=== PATIENT | male | born 1980 | race Caucasian/White ===

== ENCOUNTER 2016-11-27 10:10 | Inpatient (IN) | payer OTHER, BC ==
[2016-11-27] MEDS ORDERED: TDAP ADULT 0.5 ML INJ (BOOSTRIX) IM ONE (10:21)
[2016-11-27] MEDS ORDERED: ceFAZolin 2 GM/DEXTROSE 100 ML IV ONE (10:27)
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
[2016-11-27 10:30] LABS: % IMMATURE GRANULYOCYTES 1.3 % (0.0-1.1); ABSOLUTE IMMATURE GRANULOCYTES 0.11 10^3/uL (0.00-0.10); ADD DIFF? NO; ADD MORPH? NO; ADD SCAN? NO; ATYPICAL LYMPHOCYTE FLAG 10 (0-99); FRAGMENT RBC FLAG 0 (0-99); HEMATOCRIT 46.8 % (40.0-51.0); HEMOGLOBIN 15.3 g/dL (13.7-17.5); LEFT SHIFT FLG 0 (0-99); LIPEMIA HEMOLYSIS FLAG 80 (0-99); MEAN CELL HEMOGLOBIN 31.2 pg (27.9-34.1); MEAN CELL HEMOGLOBIN CONCENTR. 32.7 g/dL (32.4-36.7); MEAN CELL VOLUME 95.5 fL (81.5-99.8); PLATELET CLUMPS FLAG 0 (0-99); PLATELET COUNT 300 10^3/uL (150-400); RED CELL DISTRIBUTION WIDTH 12.8 % (11.5-15.2)
[2016-11-27 10:55] LABS: ANION GAP 13 mEq/L (8-16); CALCIUM 9.5 mg/dL (8.5-10.4); CARBON DIOXIDE 24 mEq/l (22-31); CHLORIDE 102 mEq/L (97-110); CREATININE 1.1 mg/dL (0.7-1.3); GLOMERULAR FILTRATION RATE > 60; GLUCOSE 120 mg/dL (70-100); SODIUM 139 mEq/L (134-144)
[2016-11-27] MEDS ORDERED: ONDANSETRON 4 MG/2 ML VIAL ONE (11:00)
[2016-11-27] MEDS ORDERED: HYDROmorphONE/DILAUDID 1 MG/ML SYR ONE (11:00)
[2016-11-27] MEDS ORDERED: ONDANSETRON 4 MG/2 ML VIAL IVP ONE (11:01)
[2016-11-27] MEDS ORDERED: HYDROmorphONE/DILAUDID 1 MG/ML SYR IVP ONE (11:01)
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
[2016-11-27] MEDS ORDERED: LR 1,000 ML IV ONE (12:40)
[2016-11-27] MEDS ORDERED: MIDAZOLAM 2 MG/2 ML VIAL IVP ONE (13:00)
[2016-11-27] MEDS ORDERED: BUPIVACAINE/EPI 0.5% 30 ML SDV ONE (13:01)
--- NOTE | 2016-11-27 13:01 | PDANEPAE ---
BRENT History of Present Illness r tibial fracture ANE Past Medical History Past Medical History: asthma - Pulmonary History Hx Asthma/Reactive Airway Disease: Yes Hx Oxygen in Use at Home: No Hx Sleep Apnea: No - Endocrine History Hx Diabetes: No ANE Patient History - Allergies Allergies/Adverse Reactions: cat dander Allergy (Verified 11/27/16 10:23) - Home Medications Home Medications: Acetaminophen [Tylenol 325mg (*)] 325 mg PO DAILY PRN 11/27/16 [Last Taken Unknown] Albuterol [Proventil Inhaler HFA (*)] 1 - 2 puffs IH DAILY PRN 11/27/16 [Last Taken Unknown] - NPO status NPO Since - Liquids (Date): 11/27/16 NPO Since - Liquids (Time): 09:30 NPO Since - Solids (Date): 11/26/16 - Smoking Hx Smoking Status: Never smoked BRENT Labs/Vital Signs - Labs Result Diagrams: 11/27/16 10:14 11/27/16 10:14 - Vital Signs Blood Pressure: 121/75 Heart Rate: 68 Respiratory Rate: 18 O2 Sat (%): 95 Height: 177.8 cm Weight: 99.79 kg BRENT Physical Exam - Airway Neck exam: FROM Mallampati Score: Class 3 Mouth exam: normal dental/mouth exam - Pulmonary Pulmonary: no respiratory distress - Cardiovascular Cardiovascular: regular rate and rhythym - ASA Status ASA Status: II, E ANE Anesthesia Plan Anesthesia Plan: general endotracheal anesthesia
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
[2016-11-27] MEDS ORDERED: SUCCINYLCHOLINE CHLORIDE*ANESTHESIA ONLY*200 MG/10 ML SYR IVP ONE (13:11)
[2016-11-27] MEDS ORDERED: fentaNYL 100 MCG/2 ML INJ ONE ×3 (13:11→18:17)
[2016-11-27] MEDS ORDERED: ROCURONIUM 50 MG/5 ML VIAL ONE (13:11)
[2016-11-27] MEDS ORDERED: HYDROmorphONE/DILAUDID 2 MG/ML INJ ONE (13:11)
[2016-11-27] MEDS ORDERED: PROPOFOL 200 MG/20 ML VIAL ONE (13:12)
[2016-11-27] MEDS ORDERED: NALOXONE HCL 0.4 MG/ML INJ IVP PRN ×2 (13:15→15:16)
[2016-11-27] MEDS ORDERED: ONDANSETRON 4 MG/2 ML VIAL IVP PRN ×2 (13:15→15:16)
[2016-11-27] MEDS ORDERED: PROMETHAZINE HCL 25 MG/ML INJ IVP PRN (15:16)
[2016-11-27] MEDS ORDERED: ALBUTEROL 3 ML DEYVIAL IH PRN (15:16)
[2016-11-27] MEDS ORDERED: HYDROmorphONE/DILAUDID 1 MG/ML SYR IVP PRN (15:16)
[2016-11-27] MEDS ORDERED: IOPAMIDOL (ISOVUE-M 200) 20 ML VIAL ONE (16:13)
--- NOTE | 2016-11-27 16:19 | POSTOPPROG ---
Post Op Note Date of Operation: 11/27/16 Surgeon: Rick Barrett Data Entry Clerk: Dalia Sandoval PA-C Anesthesia: GET(General Endotracheal) Pre-op Diagnosis: GradeIIIB Right Open distal tibia/intraarticular & proximal fibula fracture Post-op Diagnosis: GradeIIIB Right Open distal tibia/intraarticular & proximal fibula fracture Indication: Open tibia/fibula fracture Procedure: I&D Right open wound and ex-fix placement for tibia/fibula fractures Findings: Open tibia fracture with arterial bleeding and nerve injury Inf/Abcess present in the surg proc area at time of surgery?: No EBL: 50-100 Complications: Upon immediate inspection of the right open tibia fracture site there was bright red blood flow and a lacerated arterial vessel and nerve were noted. The artery was tied off to stop the bleeding. An intra-op neurosurgeon and vascular surgeon were paged into the room for further evaluation and treatment. Patient was stable throughout the procedure.
[2016-11-27] MEDS ORDERED: IOPAMIDOL (ISOVUE-M 300) 15 ML VIAL ONE (16:35)
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
--- NOTE | 2016-11-27 18:08 | POSTANESTH ---
Post Anesthetic Evaluation Cardiovascular Status: Normal, Stable Respiratory Status: Normal, Stable Level of Consciousness/Mental Status: Can Participate in Eval Pain Control: Adequate, Prn Tx Ordered Nausea/Vomiting Control: Adequate, Prn Tx Ordered Complications Possibly Related to Anesthesia: None Noted
[2016-11-27] MEDS: fentaNYL 100 MCG/2 ML INJ IVP PRN ×2 (18:20→18:47)
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
[2016-11-27] MEDS: oxyCODONE IR 5 MG TAB PO PRN (19:58)
[2016-11-27] MEDS: ceFAZolin 2 GM/DEXTROSE 100 ML IV SCH (20:40)
[2016-11-27] MEDS: LR 1,000 ML IV SCH (20:41)
[2016-11-27] MEDS: FAMOTIDINE 20 MG/NACL 50 ML IV SCH (23:48)
[2016-11-28] MEDS: oxyCODONE IR 5 MG TAB PO PRN ×5 (02:19→19:56)
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
[2016-11-28] MEDS: ceFAZolin 2 GM/DEXTROSE 100 ML IV SCH ×3 (06:52→23:25)
--- NOTE | 2016-11-28 07:30 | SOAPPROG ---
<Alice Fernandezher - Last Filed: 11/28/16 07:26> SOAP Progress Note Assessment/Plan: Assessment/Plan: Right distal tibia fracture open and proximal fibula fracture s /p application of external fixation, lateral compartment fasciotomy POD#1. Also , repair of the anterior tibial artery and peroneal nerve. - Continue pain management - NWB RLE - Elevate the RLE for comfort and ice - Will need delayed closure of the lateral fasciotomy site 11/28/16 07:26 11/28/16 07:35 Subjective: Pt states he is having trouble getting comfortable, but the pain is mostly being managed well. Pt denies any fever, chills, chest pain, SOB, abdominal pain, N/V/D, and calf pain. Objective: Vital Signs Temp Pulse Resp BP Pulse Ox 37.0 C 69 16 104/66 99 11/28/16 07:23 11/28/16 07:23 11/28/16 07:23 11/28/16 07:23 11/28/16 07:23 11/27/16 11/28/16 11/29/16 05:59 05:59 05:59 Intake Total 2390 Output Total 1000 Balance 1390 Physical Exam - Physical Exam General Appearance: alert, no apparent distress Peripheral Pulses: 2+: dorsalis-pedis (R), dorsalis-pedis (L) Skin: normal color, warm/dry, other (clear, bloody drainage from the lateral fasciotomy site.) Extremities: normal capillary refill, pedal edema, swelling, other (External fixation device in place. Compartments are soft ), No calf tenderness, No Flash 's sign Neuro/Psych: alert, normal mood/affect, oriented x 3 ICD10 Worksheet Patient Problems: Problems Problem Status Onset Facial laceration Acute Nasal bone fracture Acute Open fracture of right tibia and fibula Acute <Rick Barrett - Last Filed: 11/28/16 14:06> SOAP Progress Note Assessment/Plan: Assessment: Plan: 11/28/16 14:02 Strict elevation above heart, NWB RLE, pin site care with 1/2 strength H202 starting tomorrow with dsg change. No NSAIDs. CT RLE with sag/cor/3D recons today. Appears he will be appropriate for DPC of lat fasciotomy site on Kurtis. Cont IV abx while fasciotoy site is open. Appreciate GSURG and NSURG multi-disciplinary approach to this complex patient and injury - neuro/vasc care per these MDs. Dr Aguilar would like to proceed with angiogram at some point today. Please call with any questions - my partner is soup person this weekend, Dr Kenji Hawthorne. Objective: Vital Signs Temp Pulse Resp BP Pulse Ox 36.9 C 75 16 110/68 100 11/28/16 11:48 11/28/16 11:48 11/28/16 11:48 11/28/16 11:48 11/28/16 11:48 11/27/16 11/28/16 11/29/16 05:59 05:59 05:59 Intake Total 2390 Output Total 1000 Balance 1390 Focused secondary exam of RLE by me is notable for intact LT sens over DP, SP and T nerve distributions distally. He is able to wiggle all toes. No pain with passive stretch and comp's soft throughout. WWP with brisk CR, 1+ DP and 2 + PT pulses.
[2016-11-28] MEDS: ENOXAPARIN 40 MG/0.4 ML SYR SC SCH (08:04)
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
[2016-11-28] MEDS: FAMOTIDINE 20 MG/NACL 50 ML IV SCH ×2 (08:06→22:59)
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
[2016-11-28] MEDS: LR 1,000 ML IV SCH (15:17)
[2016-11-29] MEDS: oxyCODONE IR 5 MG TAB PO PRN ×6 (00:09→22:12)
[2016-11-29] MEDS: LR 1,000 ML IV SCH (03:38)
[2016-11-29] MEDS: ceFAZolin 2 GM/DEXTROSE 100 ML IV SCH ×3 (05:57→22:13)
[2016-11-29] MEDS ORDERED: METOCLOPRAMIDE 10 MG TAB PO PRN (08:40)
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
[2016-11-29] MEDS: DOCUSATE SODIUM 100 MG CAP PO SCH ×2 (09:58→20:31)
[2016-11-29] MEDS: ENOXAPARIN 40 MG/0.4 ML SYR SC SCH (09:59)
[2016-11-29] MEDS: FAMOTIDINE 20 MG TAB PO SCH ×2 (09:59→20:30)
--- NOTE | 2016-11-29 15:15 | SOAPPROG ---
SOAP Progress Note Assessment/Plan: Assessment/Plan: Right distal tibia fracture open and proximal fibula fracture s /p application of external fixation, lateral compartment fasciotomy POD#2. Also , repair of the anterior tibial artery and peroneal nerve. - Continue pain management - NWB RLE - Elevate the RLE for comfort and ice - Pin site care done today - Keep NPO after midnight for potential closing of fasciotomy site, will evaluate in the morning for definitive plan - VTE prophylaxis per trauma team 11/28/16 07:26 11/28/16 07:35 11/29/16 15:11 Subjective: Pt states he is doing okay. He has trouble getting comfortable. Pt thinks he has more swelling in the RLE extremity today, especially his foot. Reports decreased sensation in the lateral foot. Objective: Vital Signs Temp Pulse Resp BP Pulse Ox 36.8 C 83 16 113/62 95 11/29/16 11:01 11/29/16 11:01 11/29/16 11:01 11/29/16 11:01 11/29/16 11:01 11/28/16 11/29/16 11/30/16 05:59 05:59 05:59 Intake Total 2390 Output Total 1000 475 Balance 1390 -475 Physical Exam - Physical Exam General Appearance: alert, mild distress Cardiac/Chest: normal peripheral pulses Skin: normal color, warm/dry, other (fasciotomy site with serosanguinous drainage, pin sites without any erythema or calor. ) Extremities: normal inspection, normal capillary refill, pedal edema, swelling ( RLE. ), No calf tenderness, No Flash's sign Neuro/Psych: alert, normal mood/affect, oriented x 3, sensory deficit (light touch intact to the dorsal aspect of the lateral foot, but pt reports it is decreased) ICD10 Worksheet Patient Problems: Problems Problem Status Onset Facial laceration Acute Nasal bone fracture Acute Open fracture of right tibia and fibula Acute
[2016-11-30] MEDS: oxyCODONE IR 5 MG TAB PO PRN ×6 (02:45→23:09)
[2016-11-30] MEDS: ceFAZolin 2 GM/DEXTROSE 100 ML IV SCH ×3 (05:59→21:53)
[2016-11-30] MEDS: ENOXAPARIN 40 MG/0.4 ML SYR SC SCH (08:22)
[2016-11-30] MEDS: FAMOTIDINE 20 MG TAB PO SCH ×2 (08:22→20:54)
[2016-11-30] MEDS: DOCUSATE SODIUM 100 MG CAP PO SCH (08:22)
--- NOTE | 2016-11-30 08:56 | SOAPPROG ---
SOAP Progress Note Assessment/Plan: Assessment: Stable. No evidence of compartment syndrome/ infection. Still to swollen for delayed primary wound closure today. Plan: Continue elevation, observation, PT. Delayed primary wound closure this week if swelling decreases, otherwise STSG. Consider wound vac to decrease swelling. 11/30/16 08:52 11/30/16 09:06 Subjective: Pain well controlled : 07/14 this am. Feels swelling is about the same. Objective: Vital Signs Temp Pulse Resp BP Pulse Ox 36.9 C 85 18 127/83 H 96 11/30/16 02:49 11/30/16 02:49 11/30/16 02:49 11/30/16 02:49 11/30/16 02:49 11/29/16 11/30/16 12/01/16 05:59 05:59 05:59 Output Total 475 Balance -475 Still with significant swelling lower leg, but compartments are soft. Dressings changed. Incision and fasciotomy site clean without signs of infection. Pulses: DP and PT 2+. Cap refill normal. Able to dorsiflex and plantarflex his toes. Absent sensation in 1st dorsal web space. Decreased but intact sensation dorsum of foot. Normal sensation plantar foot. ICD10 Worksheet Patient Problems: Problems Problem Status Onset Facial laceration Acute Nasal bone fracture Acute Open fracture of right tibia and fibula Acute
--- NOTE | 2016-11-30 09:20 | TRAUMAPN ---
Assessment/Plan: wound inspected at bedside and I agree with Dr. Hawthorne, there is too much swelling for fasciotomy closure today. I would apply a wound vac and re-assess in 1-2 days. discussed with patient/supplies ordered. Subjective: awake and alert/post injury day #3 s/p RLE ex-fix for distal tib fib fx./fasciotomy Objective: Vital Signs Temp Pulse Resp BP Pulse Ox 36.9 C 85 18 127/83 H 96 11/30/16 02:49 11/30/16 02:49 11/30/16 02:49 11/30/16 02:49 11/30/16 02:49 11/29/16 11/30/16 12/01/16 05:59 05:59 05:59 Output Total 475 Balance -475 - C-Spine Clearance Cervical Spine Cleared: Yes Provider who Cleared Cervical Spine: Lauren Physical Exam - Physical Exam General Appearance: alert, mild distress Neck: non-tender Respiratory: chest non-tender, lungs clear Cardiac/Chest: regular rate, rhythm Abdomen: non-tender, soft Skin: normal color, other (RLE swelling/edema from the knee distal) Extremities: other (LLE DP +2 PT +2/loss of sensation dorsum of foot) Neuro/Psych: alert, normal mood/affect, oriented x 3
[2016-11-30] MEDS ORDERED: MAGNESIUM HYDROXIDE 30 ML UDCUP PO PRN (11:05)
[2016-11-30] MEDS ORDERED: BISACODYL 10 MG SUPP PR PRN (11:05)
[2016-11-30] MEDS ORDERED: HYDROGEN PEROXIDE 236 ML BOTTLE TP ONE (11:32)
[2016-11-30] MEDS: POLYETHYLENE GLYCOL 3350 17 GM PKT PO PRN (11:32)
[2016-11-30] MEDS: SENNOSIDES/DOCUSATE SODIUM TAB PO SCH (20:54)
[2016-12-01] MEDS: oxyCODONE IR 5 MG TAB PO PRN ×4 (05:17→21:14)
[2016-12-01] MEDS: ceFAZolin 2 GM/DEXTROSE 100 ML IV SCH ×2 (05:19→14:40)
--- NOTE | 2016-12-01 07:17 | SOAPPROG ---
SOAP Progress Note Assessment/Plan: Assessment/Plan: Right distal tibia fracture open and proximal fibula fracture s /p application of external fixation, lateral compartment fasciotomy POD#4. Also , repair of the anterior tibial artery and peroneal nerve. - Continue pain management - NWB RLE - Elevate the RLE for comfort and ice - Will need daily pin care - VTE prophylaxis per trauma team - Will need delayed closure of fasciotomy site 11/28/16 07:26 11/28/16 07:35 11/29/16 15:11 12/01/16 07:14 Subjective: Pt states his pain has been more manageable 07/14. Still reports numbness on the dorsal aspect of the R foot. Pt denies fever, chills, chest pain, SOB, abdominal pain, N/V/D, and calf pain. Objective: Vital Signs Temp Pulse Resp BP Pulse Ox 36.9 C 95 18 115/83 H 97 12/01/16 04:00 12/01/16 04:00 12/01/16 04:00 12/01/16 04:00 12/01/16 04:00 11/30/16 12/01/16 12/02/16 05:59 05:59 05:59 Intake Total 2000 Output Total 1625 Balance 375 Physical Exam - Physical Exam General Appearance: alert, no apparent distress Peripheral Pulses: 1+: dorsalis-pedis (R) (more faint today) Skin: normal color, warm/dry, other (wound vac in place lateral compartment) Extremities: normal inspection, normal capillary refill, pedal edema, swelling ( RLE ), No calf tenderness, No Flash's sign Neuro/Psych: alert, normal mood/affect, oriented x 3, sensory deficit ( subjective decreased sensation to light touch on the dorsal aspect R foot) ICD10 Worksheet Patient Problems: Problems Problem Status Onset Facial laceration Acute Nasal bone fracture Acute Open fracture of right tibia and fibula Acute
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
[2016-12-01] MEDS: ENOXAPARIN 40 MG/0.4 ML SYR SC SCH (08:16)
[2016-12-01] MEDS: SENNOSIDES/DOCUSATE SODIUM TAB PO SCH ×2 (08:17→20:56)
[2016-12-01] MEDS: FAMOTIDINE 20 MG TAB PO SCH ×2 (08:17→20:57)
[2016-12-01] MEDS: BACITRACIN OINTMENT 1 PACKET TP SCH ×2 (08:17→20:57)
[2016-12-01] MEDS: LACTULOSE 20 GM/30 ML UDCUP PO PRN ×2 (08:17→18:14)
--- NOTE | 2016-12-01 10:40 | TRAUMAPN ---
Assessment/Plan: POD#4 s/p I&D Right open wound and ex-fix placement for tibia/fibula fractures complicated by an arterial bleed which was resolved in the operating room. Wound vac placed yesterday, amount of swelling present was not amenable to fasciotomy closure. Continue wound vac today NPO after midnight for possible wound closure tomorrow Elevate leg for comfort Continue pain control S: Patient reports pain well controlled with Oxycodone. No bowel movement yet. Denies SOB, dyspnea, N/V. O: Sitting up in bed with leg elevated Left orbital ecchymosis, vision grossly intact Wound vac draining serosang Moderate RLE edema present RLE DP and PT pulses present Minor movement of right toes Lungs CTAB Abdomen soft, nontender, nondistended Objective: Vital Signs Temp Pulse Resp BP Pulse Ox 36.8 C 80 18 126/71 H 98 12/01/16 08:00 12/01/16 08:00 12/01/16 08:00 12/01/16 08:00 12/01/16 08:00 11/30/16 12/01/16 12/02/16 05:59 05:59 05:59 Intake Total 1999 Output Total 1625 Balance 375 - C-Spine Clearance Cervical Spine Cleared: Yes Provider who Cleared Cervical Spine: Lauren
[2016-12-01] MEDS ORDERED: IOPAMIDOL (ISOVUE 370) 100 ML BTL IV ONE (14:41)
--- NOTE | 2016-12-01 19:58 | SOAPPROG ---
GIN Progress Note Assessment/Plan: Assessment: PATIENT DOING REASONABLY WELL WITH RIGHT OPEN TIB-FIB FRACTURE CTA SUGGESTED POSSIBLE TIBIOPERONEAL TRUNK AV FISTULA WITH OCCLUDED ANTERIOR TIBIAL DISTALLY Plan: WE WILL FOLLOW 12/01/16 19:57 Objective: Vital Signs Temp Pulse Resp BP Pulse Ox 36.8 C 88 16 114/68 96 12/01/16 16:00 12/01/16 16:00 12/01/16 16:00 12/01/16 16:00 12/01/16 16:00 11/30/16 12/01/16 12/02/16 05:59 05:59 05:59 Intake Total 1999 Output Total 1625 50 Balance 375 750 ICD10 Worksheet Patient Problems: Problems Problem Status Onset Facial laceration Acute Nasal bone fracture Acute Open fracture of right tibia and fibula Acute
[2016-12-02] MEDS: oxyCODONE IR 5 MG TAB PO PRN ×4 (03:03→20:51)
[2016-12-02] MEDS: SENNOSIDES/DOCUSATE SODIUM TAB PO SCH ×2 (08:04→20:52)
[2016-12-02] MEDS: FAMOTIDINE 20 MG TAB PO SCH ×2 (08:04→20:52)
[2016-12-02] MEDS: ENOXAPARIN 40 MG/0.4 ML SYR SC SCH (08:05)
[2016-12-02] MEDS: POLYETHYLENE GLYCOL 3350 17 GM PKT PO PRN (08:05)
[2016-12-02] MEDS: BACITRACIN OINTMENT 1 PACKET TP SCH ×2 (08:06→20:52)
--- NOTE | 2016-12-02 08:28 | SOAPPROG ---
SOAP Progress Note Assessment/Plan: Assessment: POD#5 I&D RLE wound and ex-fix placement GradeIIIB Right Open distal tibia/ intraarticular & proximal fibula fracture & lateral compartment fasciotomy (& repair of the anterior tibial artery & peroneal nerve done by Trauma and Neurosurgery) Plan: NWB RLE Pain medicine prn Elevate and Ice RLE Daily pin care VTE prophylaxis per Trauma Wound Vac in place over lateral RLE compartment: plan for OR tomorrow 12/03 for wound closure of fasciotomy site by Dr. [facility] Stable Subjective: Patient is 5 days status post I&D RLE wound and ex-fix placement GradeIIIB Right Open distal tibia/intraarticular & proximal fibula fracture & lateral compartment fasciotomy. Patient states his pain is controlled in his RLE and less painful then yesterday. Objective: Vital Signs Temp Pulse Resp BP Pulse Ox 36.7 C 98 16 121/76 H 93 12/02/16 07:23 12/02/16 07:23 12/02/16 07:23 12/02/16 07:23 12/02/16 07:23 12/01/16 12/02/16 12/03/16 05:59 05:59 05:59 Intake Total 2000 1800 Output Total 1625 300 Balance 375 1500 Physical exam of the RLE: ex-fix in place. Pin sites are without erythema. Compartments are soft, edematous. No pain with passive stretch. Wound VAC in place over lateral fasciotomy site. NV exam now c/w deep peroneal nerve deficit motor & sensory. Patient able to wiggle all 5 toes. Palpable DP pulse. ICD10 Worksheet Patient Problems: Problems Problem Status Onset Facial laceration Acute Nasal bone fracture Acute Open fracture of right tibia and fibula Acute
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
--- NOTE | 2016-12-02 11:56 | ASMTCMCOM ---
CM Note CM Note Notes: Pt still has wound vac. PT/OT pending. D/c plan remains unclear. Date Signed: 12/02/2016 10:50 AM Electronically Signed By:Michelle Smiley
[2016-12-02] MEDS ORDERED: CYCLOBENZAPRINE 10 MG TAB PO PRN (12:22)
[2016-12-02] MEDS: NYSTATIN POWDER 15 GM BTL TP SCH ×3 (13:18→20:55)
--- NOTE | 2016-12-02 14:23 | ASMTCMCOM ---
CM Note CM Note Notes: Update on pt: PT recommending homecare vs SNF depending on his progress. Currently, pain is an issu e. Date Signed: 12/02/2016 02:22 PM Electronically Signed By:Michelle Smiley
[2016-12-03] MEDS: LR 1,000 ML IV SCH ×2 (00:16→12:46)
[2016-12-03] MEDS: oxyCODONE IR 5 MG TAB PO PRN ×5 (01:38→22:12)
[2016-12-03] MEDS: ENOXAPARIN 40 MG/0.4 ML SYR SC SCH (07:26)
--- NOTE | 2016-12-03 08:05 | SOAPPROG ---
SOAP Progress Note Assessment/Plan: Assessment: POD#6 I&D RLE wound and ex-fix placement GradeIIIB Right Open distal tibia/ intraarticular & proximal fibula fracture & lateral compartment fasciotomy (& repair of the anterior tibial artery & peroneal nerve done by Trauma and Neurosurgery) Plan: NWB RLE Pain medicine prn Elevate and Ice RLE Daily pin care VTE prophylaxis per Trauma Wound Vac in place over lateral RLE compartment: plan for OR today 12/03 for wound closure of fasciotomy site by Dr. Barrett Ortho Stable Subjective: Patient is now POD#6 I&D RLE wound and ex-fix placement GradeIIIB Right Open distal tibia/intraarticular & proximal fibula fracture & lateral compartment fasciotomy. His pain is his RLE is controlled. Patient stable. Objective: Vital Signs Temp Pulse Resp BP Pulse Ox 36.7 C 98 16 119/77 95 12/03/16 05:14 12/03/16 05:14 12/03/16 05:14 12/03/16 05:14 12/03/16 05:14 12/02/16 12/03/16 12/04/16 05:59 05:59 05:59 Intake Total 1800 1100 Output Total 300 1350 Balance 1500 -250 Physical exam of the RLE: ex-fix in place. Pin sites are without erythema. Compartments are soft, edematous. No pain with passive stretch. Wound VAC in place over lateral fasciotomy site. NV exam now c/w deep peroneal nerve deficit motor & sensory. Patient able to wiggle all 5 toes. Palpable DP pulse. ICD10 Worksheet Patient Problems: Problems Problem Status Onset Facial laceration Acute Nasal bone fracture Acute Open fracture of right tibia and fibula Acute
[2016-12-03] MEDS: SENNOSIDES/DOCUSATE SODIUM TAB PO SCH ×2 (08:50→22:14)
[2016-12-03] MEDS: BACITRACIN OINTMENT 1 PACKET TP SCH ×2 (08:50→22:19)
[2016-12-03] MEDS: NYSTATIN POWDER 15 GM BTL TP SCH ×3 (08:50→22:19)
[2016-12-03] MEDS: FAMOTIDINE 20 MG TAB PO SCH ×2 (08:50→22:13)
[2016-12-03] MEDS ORDERED: ALBUTEROL 3 ML DEYVIAL IH PRN ×2 (12:15→14:32)
[2016-12-03] MEDS ORDERED: ALBUTEROL 3 ML DEYVIAL IH ONE ×2 (12:15→13:04)
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
[2016-12-03] MEDS ORDERED: ceFAZolin 2 GM/DEXTROSE 100 ML IV ONE (12:36)
[2016-12-03] MEDS ORDERED: LR 1,000 ML IV ONE (12:38)
[2016-12-03] MEDS ORDERED: BUPIVACAINE 0.5% 30 ML SDV ONE (12:53)
[2016-12-03] MEDS ORDERED: BACITRACIN 50,000 UNITS/10 ML SYR IRR ONE ×2 (12:54→13:16)
[2016-12-03] MEDS ORDERED: POLYMYXIN B SULFATE 500,000 UNIT/10 ML SYR IRR ONE (12:54)
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
[2016-12-03] MEDS ORDERED: fentaNYL 100 MCG/2 ML INJ ONE (13:14)
[2016-12-03] MEDS ORDERED: LIDOCAINE 2% 5 ML SDV ONE (13:15)
[2016-12-03] MEDS ORDERED: PROPOFOL/EMULSION 500 MG/50 ML BOTTLE IV ONE (13:15)
[2016-12-03] MEDS ORDERED: DEXAMETHASONE 4 MG/ML VIAL ONE (13:15)
[2016-12-03] MEDS ORDERED: HYDROGEN PEROXIDE 236 ML BOTTLE TP ONE (13:36)
[2016-12-03] MEDS ORDERED: ACETAMINOPHEN 500 MG TAB PO PRN (14:32)
[2016-12-03] MEDS ORDERED: D5W LR 500 ML IV PRN (14:32)
[2016-12-03] MEDS ORDERED: fentaNYL 100 MCG/2 ML INJ IVP PRN (14:32)
[2016-12-03] MEDS ORDERED: NALOXONE HCL 0.4 MG/ML INJ IVP PRN (14:32)
[2016-12-03] MEDS ORDERED: PROMETHAZINE HCL 25 MG/ML INJ IVP PRN (14:32)
[2016-12-03] MEDS ORDERED: ONDANSETRON 4 MG/2 ML VIAL ONE (14:35)
--- NOTE | 2016-12-03 15:05 | POSTOPPROG ---
Post Op Note Date of Operation: 12/03/16 Surgeon: Rick Barrett [employer] Instructor: None Anesthesiologist: Sanders Anesthesia: GET(General Endotracheal) Pre-op Diagnosis: R leg open fasciotomy wound s/p open GIII tibia fracture Post-op Diagnosis: Same Indication: Open surgical wound Procedure: Incision, irrigation, debridement and drainage right leg wound with DPC Findings: Some necrotic tissues but overall healthy and aseptic wound Inf/Abcess present in the surg proc area at time of surgery?: No Depth: Deep Incisional (Fascial) EBL: Minimal Complications: None
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
[2016-12-04] MEDS: oxyCODONE IR 5 MG TAB PO PRN ×4 (03:09→23:13)
[2016-12-04] MEDS: ENOXAPARIN 40 MG/0.4 ML SYR SC SCH (07:52)
[2016-12-04] MEDS: POLYETHYLENE GLYCOL 3350 17 GM PKT PO PRN (07:52)
[2016-12-04] MEDS: BACITRACIN OINTMENT 1 PACKET TP SCH ×2 (07:53→20:56)
[2016-12-04] MEDS: NYSTATIN POWDER 15 GM BTL TP SCH ×3 (07:53→20:56)
[2016-12-04] MEDS: FAMOTIDINE 20 MG TAB PO SCH ×2 (07:53→21:00)
[2016-12-04] MEDS: SENNOSIDES/DOCUSATE SODIUM TAB PO SCH ×2 (07:53→21:00)
[2016-12-04] MEDS ORDERED: KETOROLAC 30 MG/1 ML SDV IVP ONE (08:24)
--- NOTE | 2016-12-04 08:32 | SOAPPROG ---
SOAP Progress Note Assessment/Plan: Assessment/Plan: Delayed closure lateral fasciotomy site POD#1. Right distal tibia fracture open and proximal fibula fracture s/p application of external fixation, lateral compartment fasciotomy POD#7. Also, repair of the anterior tibial artery and peroneal nerve. - Continue pain management - NWB RLE - Elevate the RLE for comfort and ice - Will need daily pin care - VTE prophylaxis per trauma team - Pt okay for discharge from an orthopedic standpoint was cleared by trauma - Pt is to follow-up with Dr. Barrett on 12/09/2016, for possible surgery 12/1111/28/16 07:26 11/28/16 07:35 11/29/16 15:11 12/01/16 07:14 12/04/16 08:30 12/04/16 10:53 Subjective: Pt states his pain is much improved since the fasciotomy closure yesterday. Pt denies fever, chills, chest pain, SOB, abdominal pain, N/V/D, numbness, tingling , and calf pain. Objective: Vital Signs Temp Pulse Resp BP Pulse Ox 36.4 C 81 16 103/71 97 12/04/16 08:00 12/04/16 08:00 12/04/16 08:00 12/04/16 08:00 12/04/16 08:00 12/03/16 12/04/16 12/05/16 05:59 05:59 05:59 Intake Total 1100 3400 Output Total 1350 1415 Balance -250 1985 Physical Exam - Physical Exam General Appearance: alert, no apparent distress Cardiac/Chest: normal peripheral pulses Skin: normal color, warm/dry, other (Post-operative dressing clean and intact) Extremities: pedal edema, swelling (localized RLE), No calf tenderness, No Flash 's sign Neuro/Psych: no motor/sensory deficits, alert, normal mood/affect, oriented x 3 ICD10 Worksheet Patient Problems: Problems Problem Status Onset Facial laceration Acute Nasal bone fracture Acute Open fracture of right tibia and fibula Acute
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
[2016-12-04] MEDS: KETOROLAC 15 MG/1 ML SDV IVP SCH ×3 (11:36→23:13)
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
[2016-12-04] MEDS ORDERED: diphenhydrAMINE 25 MG CAP PO PRN (16:39)
[2016-12-05] MEDS: KETOROLAC 15 MG/1 ML SDV IVP SCH ×3 (05:17→18:06)
[2016-12-05] MEDS: oxyCODONE IR 5 MG TAB PO PRN ×3 (05:19→18:07)
[2016-12-05 08:29] VITALS: RESP 16
[2016-12-05] MEDS: ENOXAPARIN 40 MG/0.4 ML SYR SC SCH (08:47)
[2016-12-05] MEDS: FAMOTIDINE 20 MG TAB PO SCH (08:47)
[2016-12-05] MEDS: SENNOSIDES/DOCUSATE SODIUM TAB PO SCH (08:47)
[2016-12-05] MEDS: NYSTATIN POWDER 15 GM BTL TP SCH ×2 (08:49→18:43)
--- NOTE | 2016-12-05 09:06 | SOAPPROG ---
SOAP Progress Note Assessment/Plan: Assessment/Plan: Delayed closure lateral fasciotomy site POD#2. Right distal tibia fracture open and proximal fibula fracture s/p application of external fixation, lateral compartment fasciotomy POD#8. Also, repair of the anterior tibial artery and peroneal nerve. - Continue pain management - NWB RLE - Elevate the RLE for comfort and ice - Will need daily pin care - VTE prophylaxis per trauma team - Dressing change done today - Pt okay for discharge from an orthopedic standpoint was cleared by trauma - Pt is to follow-up with Dr. Barrett on 12/09/2016, for possible surgery 12/1111/28/16 07:26 11/28/16 07:35 11/29/16 15:11 12/01/16 07:14 12/04/16 08:30 12/04/16 10:53 12/05/16 09:04 Subjective: Pt states he is dong well, still has a popping sensation in his back. Pt denies fever, chills, chest pain, SOB, abdominal pain, N/V/D, tingling, and calf pain. Objective: Vital Signs Temp Pulse Resp BP Pulse Ox 36.8 C 76 16 98/58 L 100 12/05/16 08:00 12/05/16 08:00 12/05/16 08:00 12/05/16 08:00 12/05/16 08:00 12/04/16 12/05/16 12/06/16 05:59 05:59 05:59 Intake Total 3400 1750 Output Total 1415 650 Balance 1985 1100 Physical Exam - Physical Exam General Appearance: alert, no apparent distress Cardiac/Chest: normal peripheral pulses Skin: normal color, warm/dry, other (Incision site clean, dry, intact; no erythema, calor or discharge) Extremities: normal inspection, normal capillary refill, pedal edema, other ( Able to plantarflex and dorsiflex toes well), No calf tenderness, No swelling, No Flash's sign Neuro/Psych: alert, normal mood/affect, oriented x 3, sensory deficit ( objective decreased sensation dorsal right foot) ICD10 Worksheet Patient Problems: Problems Problem Status Onset Facial laceration Acute Nasal bone fracture Acute Open fracture of right tibia and fibula Acute
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
[2016-12-05] MEDS: BACITRACIN OINTMENT 1 PACKET TP SCH (10:55)
--- NOTE | 2016-12-05 14:28 | ASMTCMCOM ---
CM Note CM Note Notes: Pt has progressed w therapies, [facility] is now rec. [facility] [phone] can accept pt \T\ has BCBS auth. Pt is obtaining DME today. CM to follow. Date Signed: 12/05/2016 02:28 PM Electronically Signed By:Wen Goncalves
[2016-12-05 16:08] VITALS: BP 125/69; PULSE 79; TEMP 98.5; O2SAT 100
--- NOTE | 2016-12-05 17:45 | TRAUMAPN ---
Assessment/Plan: Patient set for discharge today Subjective: Patient notes back discomfort but understands that the pain will be treated medically and when the ex-fix has been removed that an MRI will be possible Objective: Vital Signs Temp Pulse Resp BP Pulse Ox 36.9 C 79 16 125/69 H 100 12/05/16 16:00 12/05/16 16:00 12/05/16 16:00 12/05/16 16:00 12/05/16 16:00 12/04/16 12/05/16 12/06/16 05:59 05:59 05:59 Intake Total 3400 1750 Output Total 1419 650 250 Balance 1984 1100 -250 - C-Spine Clearance Cervical Spine Cleared: Yes Provider who Cleared Cervical Spine: Lauren Physical Exam - Physical Exam General Appearance: WD/WN, alert, no apparent distress EENT: other (Laceration healing well. Sutures have been removed.) Neck: non-tender, full range of motion, supple Respiratory: chest non-tender, lungs clear, normal breath sounds Cardiac/Chest: normal peripheral pulses, regular rate, rhythm Abdomen: normal bowel sounds, non-tender, soft Male Genitalia: deferred Rectal: deferred Back: Normal inspection Skin: normal color, warm/dry Extremities: other (Left lower leg enternal fixation device is in place) Neuro/Psych: alert, normal mood/affect, sensory deficit (right 1st-2nd interspace numbness) Time Spent w/Patient (minutes): 15
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
--- NOTE | 2016-12-06 09:54 | PDIAF ---
- Diagnosis Code Status: Full Code - Medication Management Discharge Medications: Medications to Continue on Transfer Acetaminophen [Tylenol 325mg (*)] 1,000 mg PO Q8 #60 tab 12/05/16 [Last Taken Unknown] Albuterol [Proventil Inhaler HFA (*)] 1 - 2 puffs IH DAILY PRN #1 12/05/16 [ Last Taken 11/13/16] Bacitracin Ointment 1 edin TP BID #0 pkt 12/05/16 [Last Taken Unknown] Cyclobenzaprine [Flexeril 10 MG (*)] 10 mg PO TID PRN #30 tab 12/05/16 [Last Taken Unknown] Enoxaparin [Lovenox 40 MG (*)] 40 mg SC DAILY #14 syr 12/05/16 [Last Taken Unknown] Ibuprofen [Motrin (*)] 200 mg PO Q6H #28 tab 12/05/16 [Last Taken Unknown] oxyCODONE CR [Oxycontin] 20 mg PO BID #20 tab 12/05/16 [Last Taken Unknown] oxyCODONE IR [Oxycodone Ir (*)] 5 - 15 mg PO Q4HRS PRN #75 tab 12/05/16 [Last Taken Unknown] Discharge Medications: Refer to the Discharge Home Medication list for PRN reason. - Orders Services needed: Registered Nurse, Physical Therapy, Occupational Therapy Diet Recommendation: no restrictions on diet Diet Texture: Regular Texture Diet, Thin Liquids - Follow Up Care Current Providers and Referrals: Rick Barrett MD [Medical Doctor] - (Call the office as soon as possible to schedule a follow-up appointment for 12/09/2016.) Patient,NotPresent [Unknown] - As per Instructions Qasim Munoz MD [Medical Doctor] - (2-4 weeks)
--- NOTE | 2016-12-06 10:04 | ASDISCHSUM ---
Discharge Information Plan Status:Home with Home Health Medically Cleared to Leave: Discharge Date:12/05/2016 06:50 PM CM D/C Disposition:Home Health Service ADT D/C Disposition:Home, Routine, Self-Care Projected Discharge Date:12/07/2016 11:00 AM Transportation at D/C:Family Discharge Delay Reason: Follow-Up Date:12/07/2016 11:00 AM Discharge Slot: Final Diagnosis: Placement Information Referral Type:*Home Health Care Services Referral ID:[id number] Provider Name:Rosie [facility] [place] Address 1:[address] [address] Phone Number: Address 2: Fax Number: City:[place] Selection Factors: State:[place] Patient Contact Information Contact Name:KT Relationship: Address:[address] [address] Work Phone: City:[facility] Phone: State/[facility] Code:[place] [address] Email: Financial Information Financial Class:Commercial Primary Plan Desc:[employer] Primary Plan Number:[id number] Secondary Plan Desc: OUT OF [facility] Secondary Plan Number:[id number] Assessment Information [facility] CM Progress Note CM Note CM Note Notes: Pt still has wound vac. PT/OT pending. D/c plan remains unclear. Date Signed: 12/02/2016 10:50 AM Electronically Signed By:Michelle Smiley BC CM Progress Note CM Note CM Note Notes: Update on pt: PT recommending homecare vs SNF depending on his progress. Currently, pain is an issue. Date Signed: 12/02/2016 02:22 PM Electronically Signed By:Michelle Smiley [facility] CM Progress Note CM Note CM Note Notes: Pt has progressed w therapies, [facility] is now rec. [place] [facility] [phone] can accept pt \T\ has BCBS auth. Pt is obtaining DME today. CM to follow. Date Signed: 12/05/2016 02:28 PM Electronically Signed By:Wen Goncalves Intervention Information
== END 2016-12-05 18:50 | disposition home health service (06) | DRG 494 ==
LOC: F3N 19:52
PROVIDERS: ADMIT Surgery; ATTEND Surgery
PROC: 04L Lower Arteries, Occlusion (ICD-10-PCS; principal; 2016-11-27 13:15)
PROC: 0QSG05Z Reposition Right Tibia with External Fixation Device, Open Approach (ICD-10-PCS; principal; 2016-11-27 13:15)
PROC: 01Q Peripheral Nervous System, Repair (ICD-10-PCS; principal; 2016-11-27 13:15)
PROC: 0HQ1XZZ Repair Face Skin, External Approach (ICD-10-PCS; 2016-11-27 13:15)
PROC: 0JQN0ZZ Repair Right Lower Leg Subcutaneous Tissue and Fascia, Open Approach (ICD-10-PCS; 2016-12-03)
DX: S82.251B Displaced comminuted fracture of shaft of right tibia, initial encounter for open fracture type I or II (principal); S82.451B Displaced comminuted fracture of shaft of right fibula, initial encounter for open fracture type I or II; S94.91XA Injury of unspecified nerve at ankle and foot level, right leg, initial encounter; S01.81XA Laceration without foreign body of other part of head, initial encounter; S02.2XXA Fracture of nasal bones, initial encounter for closed fracture; V48.0XXA Car driver injured in noncollision transport accident in nontraffic accident, initial encounter; J45.909 Unspecified asthma, uncomplicated; Z98.1 Arthrodesis status
CPT/HCPCS: 82947-QW; 92523-GN; 97110-GP; 97116-GP; 97162-GP; 97166-GO; 97530-GO; 97530-GP; 97535-GO; C1713; J0330; J0690; J1100; J1170; J1650; J1885; J2250; J2405; J2704; J3010; Q9966; Q9967